=== PATIENT | male | born 1975 | race Two or more races ===

== ENCOUNTER 2021-06-07 20:01 | Emergency (ER) | payer OTHER ==
[~2021-06-07] VITALS: Ht 172.7 cm; Wt 89.8 kg
[2021-06-07] MEDS ORDERED: CEFTRIAXONE 1 GM in SODIUM CHLORIDE 0.9% 50ML 50 ML IV ONE (20:45)
[2021-06-07] MEDS ORDERED: KETOROLAC TROMETHAMINE 30 MG/ML VIAL IV STA (20:50)
[2021-06-07] MEDS ORDERED: KETOROLAC TROMETHAMINE 30 MG/ML VIAL ONE (22:01)
[2021-06-07] MEDS ORDERED: CEFTRIAXONE 1 GM VIAL ONE (22:02)
[2021-06-07] MEDS ORDERED: SODIUM CHLORIDE 0.9% 50ML 50 ML ONE (22:02)
[2021-06-07] MEDS ORDERED: AZITHROMYCIN250 MG PO ×2 (22:31→22:33)
[2021-06-07] MEDS ORDERED: IMODIUM A-D2 M2 PO (22:34)
[2021-06-07] MEDS ORDERED: DICYCLOMINE HCL10 MG PO (22:35)
[2021-06-07 22:46] VITALS: BP 121/81
== END 2021-06-07 22:46 | disposition home or self-care (01) ==
LOC: FSED 20:21
DX: R07.89 Other chest pain (principal); R05 Cough; J20.9 Acute bronchitis, unspecified; B34.9 Viral infection, unspecified; R19.7 Diarrhea, unspecified
CPT/HCPCS: 80053; 81003; 82553; 84484; 85025; 93005; 99283; J0696; J1885; U0002